=== PATIENT | male | born 1995 | race Caucasian/White ===

== ENCOUNTER 2018-12-20 13:25 | Emergency (ER) | payer OTHER ==
[~2018-12-20] VITALS: Wt 116.5 kg
[~2018-12-20 13:25] MED LIST: IBUP800T48 PO
--- NOTE | 2018-12-20 14:46 | ERD ---
ER Documentation Chief Complaint Chief Complaint 1st knuckle on RH lac w sheet metal x1d; rx'd keflex+ibuprofen. "smells" HPI 23-year-old male, right-handed, presents to the emergency department, for evaluation of a self sustained wound that occurred more than 24 hours with a metal sheet. The wound is superficial, no bleeding, the patient has been using triple antibiotic. He denies distal weakness, numbness or tingling. ROS All systems reviewed and are negative except as per history of present illness. Medications Home Meds Active Scripts Bacitracin* (Bacitracin Zinc Oint*) 28.35 Gm Oint, 1 APPLIC TOP QID, #7 TUB APPLY TO Prov:ANGELA BAUMANN MD 12/20/18 Ibuprofen* (Motrin*) 800 Mg Tab, 800 MG PO Q6H PRN for PAIN AND OR ELEVATED TEM P, #30 TAB Prov:VALENTINE [employer] 07/01/15 Allergies Allergies: Coded Allergies: No Known Allergy (Unverified , 12/20/18) PMhx/Soc History of Surgery: No Anesthesia Reaction: No Hx Neurological Disorder: No Hx Respiratory Disorders: No Hx Cardiac Disorders: No Hx Psychiatric Problems: No Hx Miscellaneous Medical Probl: No Hx Alcohol Use: No Hx Substance Use: No Hx Tobacco Use: No FmHx Family History: No diabetes, No coronary disease Physical Exam Vitals Vital Signs Date Temp Pulse Resp B/P (MAP) Pulse Ox O2 O2 Flow FiO2 Time Delivery Rate 12/20/18 99.0 55 20 153/74 99 13:29 (100) Physical Exam Const: No acute distress Head: Atraumatic Eyes: Normal Conjunctiva ENT: Normal External Ears, Nose and Mouth. Neck: Full range of motion. No meningismus. Resp: Clear to auscultation bilaterally Cardio: Regular rate and rhythm, no murmurs Abd: Soft, non tender, non distended. Normal bowel sounds Skin: Viral wart over the right lower extremity. No petechiae or rashes Back: No midline or flank tenderness Ext: Right hand with 1 cm linear laceration over the dorsal metacarpal area, clean, dry, intact. No cyanosis, or edema Neur: Awake and alert Psych: Normal Mood and Affect Procedures/MDM Vital signs stable, the patient was evaluated for infection, foreign body, open fracture, nerve/vascular/tendon injury. Neurovascular exam intact. No evidence of infection, no active bleeding, the laceration occurred more than 24 hours ago, therefore, no indication to be repaired at this time. clinical impression and possible complications like infection and a scar where discussed with the patient, who agreed with management. The patient is stable to be treated outpatient and will be discharged home with a Rx for bacitracin, some side effects of prescribed medications (headache, rash, nausea, vomiting, diarrhea, interactions with other medications) were reviewed. The patient was instructed to follow up with the primary care provider in the next 48h for wound check. If symptoms persist, worsen or new symptoms develop, then patient should return to the ED immediately. Instructions explained and given directly by me to the patient with acknowledgment and demonstrated understanding. Disclaimer: Inadvertent spelling and grammatical errors are likely due to EHR/di ctation software use and do not reflect on the overall quality of patient care. Also, please note that the electronic time recorded on this note does not necessarily reflect the actual time of the patient encounter. Departure Diagnosis: Primary Impression: Abrasion of right hand, initial encounter Additional Impression: Viral wart Condition: Stable Patient Instructions: Laceration, Hand Additional Instructions: Thank you very much for allowing us to participate in your care. Your health and safety is our top priority at [facility]. The evaluation in the emergency department has been done to rule out an acute emergency, therefore, chronic conditions like malignancy or other diseases have not been evaluated; therefore, you need to follow up with a primary care provider in the next 48h. If symptoms persist, worsen or new symptoms develop, then patient should return to the ED immediately. Call your primary care doctor TOMORROW for an appointment during the next 2-4 days and bring all the information provided. Have prescriptions filled and follow precisely the directions on the label. If the symptoms get worse and your provider is unavailable, return to the Emergency Department immediately. ANGELA BAUMANN MD December 20, 2018 14:46
[2018-12-20] MEDS ORDERED: BACI28.34 TOP (14:48)
[2018-12-20 15:11] VITALS: BP 140/73; PULSE 64; RESP 20
== END 2018-12-20 15:02 | disposition home or self-care (01) ==
LOC: FTE 13:25
DX: S61.411A Laceration without foreign body of right hand, initial encounter (principal); B07.9 Viral wart, unspecified; W26.8XXA Contact with other sharp object(s), not elsewhere classified, initial encounter; Y92.9 Unspecified place or not applicable
CPT/HCPCS: 99283